=== PATIENT | female | born 1945 | race Caucasian/White ===

== ENCOUNTER 2021-03-17 15:44 | Inpatient (IN) ==
[2021-03-17] MEDS ORDERED: Naloxone 0.4 MG/ML INJ IVP PRN (16:57)
[2021-03-17] MEDS ORDERED: Ondansetron 4 MG/2 ML VIAL IVP PRN (16:57)
[2021-03-17] MEDS ORDERED: Isovue-370 500 ML BOTTLE IVP ONE (17:03)
[2021-03-17] MEDS ORDERED: Dextrose Gel 15 GM/37.5 ML TUBE PO PRN ×2 (17:04)
[2021-03-17] MEDS ORDERED: *HR* Dextrose 50 % in Water (Vial) 50 ML VIAL IVP PRN (17:04)
[2021-03-17] MEDS ORDERED: D5% in Water 1,000 ML IVC PRN (17:04)
[2021-03-18 03:14] LABS: Prothrombin Time 11.8 Seconds (9.4-12.1)
[2021-03-18 03:17] LABS: Activated Partial Thrombo Time 28.3 Seconds (26.0-36.0)
[2021-03-18 03:22] LABS: BUN/Creatinine Ratio 15 (6-26); Blood Urea Nitrogen 13 mg/dL (8-23); Calcium 9.2 mg/dL (8.6-10.3); Carbon Dioxide 24 mEq/L (23-29); Chloride 102 mEq/L (98-107); Glucose 134 mg/dL (70-105); Magnesium 1.8 mg/dL (1.6-2.6); Osmolality,Calculated 286 (280-300); Potassium 3.3 mEq/L (3.5-5.1); Sodium 137 mEq/L (136-145); eGFR For African Americans > 60 (> 60); eGFR For Non-African Americans > 60 (> 60)
[2021-03-18] MEDS: Aspirin Enteric Coated 81 MG Tablet PO SCH (08:46)
[2021-03-18] MEDS: Insulin LISPRO 300 UNITS/3 ML VIAL SUBQ SCH ×3 (08:46→17:05)
[2021-03-18] MEDS: Nystatin Cream 15 GM TUBE TP SCH (22:12)
[2021-03-18] MEDS: Ammonium Lactate 30 APPL/225 GM BOTTLE TP SCH (22:13)
[2021-03-19] MEDS: Insulin LISPRO 300 UNITS/3 ML VIAL SUBQ SCH ×3 (09:00→16:45)
[2021-03-19] MEDS: Aspirin Enteric Coated 81 MG Tablet PO SCH (09:02)
[2021-03-19] MEDS: Ammonium Lactate 30 APPL/225 GM BOTTLE TP SCH ×2 (09:02→23:19)
[2021-03-19] MEDS: Nystatin Cream 15 GM TUBE TP SCH ×2 (09:02→23:19)
[2021-03-19] MEDS ORDERED: Perflutren Lipid Microsphere 1.3 ML in 0.9 % Sodium Chloride 8.7 ML IVP PRN (09:34)
[2021-03-19] MEDS: atenoloL 50 MG TABLET PO SCH (10:03)
[2021-03-19] MEDS: Gabapentin 400 MG CAPSULE PO SCH ×2 (14:31→19:46)
[2021-03-19] MEDS: Furosemide 40 MG TABLET PO SCH (19:46)
[2021-03-20 01:44] LABS: Hematocrit 35.9 % (35.3-44.9); Mean Corpuscular HGB Conc 33.4 g/dL (31.6-35.5); Mean Corpuscular Volume 92.8 fL (83.0-100.0); Platelet Count 267 K/mcL (140-400); Red Blood Count 3.87 M/mcL (3.82-4.97); Red Cell Distribution Width 13.7 % (11.5-14.5); White Blood Count 6.4 K/mcL (4.3-11.1)
[2021-03-20 01:54] LABS: Estimated Average Glucose 160 mg/dl; Hemoglobin A1C 7.2 %
[2021-03-20 02:03] LABS: BUN/Creatinine Ratio 16 (6-26); Blood Urea Nitrogen 14 mg/dL (8-23); Calcium 9.1 mg/dL (8.6-10.3); Carbon Dioxide 24 mEq/L (23-29); Chloride 104 mEq/L (98-107); Glucose 152 mg/dL (70-105); Osmolality,Calculated 287 (280-300); Potassium 3.4 mEq/L (3.5-5.1); Sodium 137 mEq/L (136-145); eGFR For African Americans > 60 (> 60); eGFR For Non-African Americans > 60 (> 60)
[2021-03-20] MEDS: Insulin LISPRO 300 UNITS/3 ML VIAL SUBQ SCH ×4 (08:16→20:12)
[2021-03-20] MEDS: Gabapentin 400 MG CAPSULE PO SCH ×3 (09:11→20:12)
[2021-03-20] MEDS: Aspirin Enteric Coated 81 MG Tablet PO SCH (09:11)
[2021-03-20] MEDS: Furosemide 40 MG TABLET PO SCH ×2 (09:11→20:12)
[2021-03-20] MEDS: Ammonium Lactate 30 APPL/225 GM BOTTLE TP SCH (09:12)
[2021-03-20] MEDS: atenoloL 50 MG TABLET PO SCH (09:12)
[2021-03-20] MEDS: Nystatin Cream 15 GM TUBE TP SCH (09:12)
[2021-03-20] MEDS: *HR* Heparin 5,000 UNIT/ML VIAL SQ SCH (16:57)
[2021-03-21] MEDS: Nystatin Cream 15 GM TUBE TP SCH ×2 (00:01→08:34)
[2021-03-21] MEDS: Ammonium Lactate 30 APPL/225 GM BOTTLE TP SCH ×3 (00:01→20:10)
[2021-03-21] MEDS: *HR* HYDROcodone/Acet 5/325 mg TABLET PO PRN ×2 (02:05→23:25)
[2021-03-21] MEDS: *HR* Heparin 5,000 UNIT/ML VIAL SQ SCH ×2 (05:25→17:43)
[2021-03-21 05:33] LABS: BUN/Creatinine Ratio 16 (6-26); Blood Urea Nitrogen 17 mg/dL (8-23); Calcium 8.9 mg/dL (8.6-10.3); Carbon Dioxide 28 mEq/L (23-29); Chloride 103 mEq/L (98-107); Glucose 161 mg/dL (70-105); Osmolality,Calculated 293 (280-300); Potassium 3.3 mEq/L (3.5-5.1); Sodium 139 mEq/L (136-145); eGFR For African Americans > 60 (> 60); eGFR For Non-African Americans 52 (> 60)
[2021-03-21] MEDS: Aspirin Enteric Coated 81 MG Tablet PO SCH (08:27)
[2021-03-21] MEDS: atenoloL 50 MG TABLET PO SCH (08:27)
[2021-03-21] MEDS: Gabapentin 400 MG CAPSULE PO SCH ×3 (08:27→20:10)
[2021-03-21] MEDS: Insulin LISPRO 300 UNITS/3 ML VIAL SUBQ SCH ×2 (11:20→17:30)
[2021-03-21] MEDS ORDERED: Methyl Salicylate/Menthol 57 APPL/57 GM TUBE TP PRN (11:37)
[2021-03-21] MEDS ORDERED: Trolamine Salicylate/Aloe Vera 85 APPL/85 GM TUBE TP PRN (12:47)
[2021-03-21] MEDS ORDERED: Methyl Salicylate/Menthol 85 APPL/85 GM TUBE TP PRN (13:04)
[2021-03-21] MEDS ORDERED: 0.9 % Sodium Chloride 250 ML IVC SCH (18:00)
[2021-03-22] MEDS: Nystatin Cream 15 GM TUBE TP SCH ×3 (00:23→20:09)
[2021-03-22 02:20] LABS: Calcium 8.9 mg/dL (8.6-10.3); Potassium 3.6 mEq/L (3.5-5.1)
[2021-03-22] MEDS: *HR* Heparin 5,000 UNIT/ML VIAL SQ SCH ×2 (05:40→17:17)
[2021-03-22] MEDS: Aspirin Enteric Coated 81 MG Tablet PO SCH (09:07)
[2021-03-22] MEDS: atenoloL 50 MG TABLET PO SCH (09:07)
[2021-03-22] MEDS: Gabapentin 400 MG CAPSULE PO SCH ×3 (09:07→20:07)
[2021-03-22] MEDS: Insulin LISPRO 300 UNITS/3 ML VIAL SUBQ SCH ×3 (09:10→17:18)
[2021-03-22] MEDS: Ammonium Lactate 30 APPL/225 GM BOTTLE TP SCH ×2 (09:58→20:09)
[2021-03-22] MEDS ORDERED: 0.9 % Sodium Chloride 500 ML IVC SCH (11:45)
[2021-03-22] MEDS: *HR* HYDROcodone/Acet 5/325 mg TABLET PO PRN (14:42)
[2021-03-23] MEDS: *HR* HYDROcodone/Acet 5/325 mg TABLET PO PRN (00:24)
[2021-03-23] MEDS: *HR* Heparin 5,000 UNIT/ML VIAL SQ SCH (05:32)
[2021-03-23] MEDS: Insulin LISPRO 300 UNITS/3 ML VIAL SUBQ SCH ×2 (08:50→12:59)
[2021-03-23] MEDS: atenoloL 50 MG TABLET PO SCH (08:51)
[2021-03-23] MEDS: Aspirin Enteric Coated 81 MG Tablet PO SCH (08:51)
[2021-03-23] MEDS: Gabapentin 400 MG CAPSULE PO SCH (08:51)
[2021-03-23] MEDS: Nystatin Cream 15 GM TUBE TP SCH (08:56)
[2021-03-23] MEDS: Ammonium Lactate 30 APPL/225 GM BOTTLE TP SCH (08:56)
[2021-03-23 09:06] LABS: BUN/Creatinine Ratio 21 (6-26); Blood Urea Nitrogen 20 mg/dL (8-23); Calcium 9.2 mg/dL (8.6-10.3); Carbon Dioxide 25 mEq/L (23-29); Chloride 103 mEq/L (98-107); Glucose 172 mg/dL (70-105); Osmolality,Calculated 291 (280-300); Potassium 3.7 mEq/L (3.5-5.1); Sodium 137 mEq/L (136-145); eGFR For African Americans > 60 (> 60); eGFR For Non-African Americans 56 (> 60)
[2021-03-23 11:23] VITALS: BP 157/73; PULSE 60; TEMP 97.4; O2SAT 95
== END 2021-03-23 14:20 | DRG 74 ==
LOC: 3BNU → SUATTDRO 03-18 14:35
PROVIDERS: ADMIT Internal Medicine; ATTEND Nurse Practitioner

== ENCOUNTER 2021-11-08 08:38 | Inpatient (IN) ==
[2021-11-08] MEDS ORDERED: 0.9 % Sodium Chloride 1,000 ML IV ONE ×2 (09:39→12:21)
[2021-11-08 09:49] LABS: Basophils % 0.2 %; Eosinophils % 0.2 %; Hematocrit 31.9 % (35.3-44.9); Hemoglobin 10.2 g/dL (11.5-15.4); Mean Corpuscular Hemoglobin 30.5 pg (28.0-33.3); Mean Corpuscular Volume 95.5 fL (83.0-100.0); Red Blood Count 3.34 M/mcL (3.82-4.97)
[2021-11-08 09:51] LABS: Immature Granulocytes % 0.8 % (0-4); Immature Platelets 1.5 % (1.1-6.1); Lymphocytes # 0.8 K/mcL (0.6-4.6); Lymphocytes % 4.4 %; Mean Platelet Volume 9.1 fL (9.4-12.4); Monocytes # 0.6 K/mcL (0.0-1.3); Monocytes % 3.5 %; Neutrophils # 16.5 K/mcL (1.6-8.9); Platelet Count 362 K/mcL (140-400); Red Cell Distribution Width 14.1 % (11.5-14.5); Segmented Neutrophils % 90.9 %; White Blood Count 18.1 K/mcL (4.3-11.1)
[2021-11-08 09:58] LABS: Alanine Aminotransferase 9 Units/L (7-52); Albumin 3.6 g/dL (3.5-5.7); Albumin/Globulin Ratio 1.1 (1.1-2.2); Alkaline Phosphatase 61 Units/L (34-104); Aspartate Amino Transferase 20 Units/L (13-39); BUN/Creatinine Ratio 17 (6-26); Bilirubin,Direct 0.2 mg/dL (0.0-0.2); Bilirubin,Indirect 0.4 mg/dL (0.0-1.0); Bilirubin,Total 0.6 mg/dL (0.3-1.0); Blood Urea Nitrogen 30 mg/dL (8-23); Carbon Dioxide 28 mEq/L (23-29); Chloride 94 mEq/L (98-107); Globulin 3.2 g/dL (2.4-3.5); Glucose 199 mg/dL (70-105); Lipase 8 Units/L (11-82); Osmolality,Calculated 288 (280-300); Sodium 133 mEq/L (136-145); Total Protein 6.8 g/dL (6.4-8.9); eGFR For African Americans 34 (> 60); eGFR For Non-African Americans 28 (> 60)
[2021-11-08 10:05] LABS: Troponin I < 0.03 ng/mL (< 0.04)
[2021-11-08 10:25] LABS: Influenza A PCR Negative (Negative); Influenza B PCR Negative (Negative); Resp. Syncytial Virus PCR Negative (Negative); SARS-CoV-2 by PCR (In House) Negative (Negative)
[2021-11-08] MEDS ORDERED: Piperacillin/Tazobactam 3.375 GM in 0.9 % Sodium Chloride Mini Bag 100 ML IVPB ONE (11:02)
[2021-11-08 11:07] LABS: Bilirubin,Urine Negative (Negative); Blood,Urine Negative (Negative); Clarity,Urine Clear (Clear); Color,Urine Light-Yellow (Yellow); Glucose,Urine (UA) 30 mg/dL (Normal); Ketones,Urine Negative (Negative); Leukocyte Esterase,Urine Negative (Negative); Mucus,Urine Few per lpf (None-Few); Nitrite,Urine Negative (Negative); PH,Urine 6.5 pH Units (5.0-8.0); Protein,Urine Trace mg/dL (Neg-Trace); RBC,Urine 0-3 per hpf (0-3); Specific Gravity,Urine 1.011 (1.010-1.025); Squamous Epithelial Cell,Urine Few per hpf (None-Few); Urobilinogen,Urine Normal (Normal); WBC,Urine 0-3 per hpf (0-3)
[2021-11-08] MEDS ORDERED: Vancomycin 1,500 MG/265 ML IV.SOLN IVPB ONE (12:00)
[2021-11-08] MEDS ORDERED: Dextrose 4 GM Chewable Tablets PO PRN ×2 (12:45)
[2021-11-08] MEDS ORDERED: *HR* Dextrose 50 % in Water (Syg) 50 ML SYRINGE IVP PRN (12:45)
[2021-11-08] MEDS ORDERED: Naloxone 0.4 MG/ML INJ IVP PRN (12:45)
[2021-11-08] MEDS ORDERED: D5% in Water 1,000 ML IVC PRN (12:45)
[2021-11-08] MEDS ORDERED: Acetaminophen 325 MG TABLET PO PRN (12:45)
[2021-11-08] MEDS ORDERED: cefTRIAXone 1,000 MG in 0.9 % Sodium Chloride 10 ML IVP SCH (13:00)
[2021-11-08] MEDS: 0.9 % Sodium Chloride 1,000 ML IVC SCH (16:46)
[2021-11-08] MEDS: Insulin LISPRO 300 UNITS/3 ML VIAL SUBQ SCH (16:55)
[2021-11-08] MEDS: *HR* Heparin 5,000 UNIT/ML VIAL SQ SCH (16:55)
[2021-11-08] MEDS: Nystatin POWDER 30 GM BOTTLE TP SCH ×2 (19:07→20:44)
[2021-11-08] MEDS: cefTRIAXone 1,000 MG in 0.9 % Sodium Chloride 10 ML IVP SCH (20:41)
[2021-11-08] MEDS: Miconazole 2% ointment 141 APPL/141 GM TUBE TP SCH (20:44)
[2021-11-09] MEDS: *HR* Heparin 5,000 UNIT/ML VIAL SQ SCH ×2 (05:18→16:31)
[2021-11-09 06:56] LABS: Basophils # 0.1 K/mcL (0.0-0.2); Basophils % 0.5 %; Eosinophils # 0.1 K/mcL (0.0-0.6); Eosinophils % 0.6 %; Hematocrit 27.4 % (35.3-44.9); Hemoglobin 8.7 g/dL (11.5-15.4); Immature Granulocytes % 0.4 % (0-4); Lymphocytes # 1.2 K/mcL (0.6-4.6); Lymphocytes % 11.2 %; Mean Corpuscular HGB Conc 31.8 g/dL (31.6-35.5); Mean Corpuscular Hemoglobin 29.9 pg (28.0-33.3); Mean Corpuscular Volume 94.2 fL (83.0-100.0); Mean Platelet Volume 8.7 fL (9.4-12.4); Monocytes # 0.4 K/mcL (0.0-1.3); Monocytes % 3.5 %; Neutrophils # 9.3 K/mcL (1.6-8.9); Platelet Count 283 K/mcL (140-400); Red Blood Count 2.91 M/mcL (3.82-4.97); Red Cell Distribution Width 14.3 % (11.5-14.5); Segmented Neutrophils % 83.8 %; White Blood Count 11.1 K/mcL (4.3-11.1)
[2021-11-09] MEDS: 0.9 % Sodium Chloride 1,000 ML IVC SCH (07:12)
[2021-11-09 07:15] LABS: Calcium 8.2 mg/dL (8.6-10.3); Magnesium 1.7 mg/dL (1.6-2.6); Phosphorous 4.2 mg/dL (2.7-4.5); Potassium 3.9 mEq/L (3.5-5.1)
[2021-11-09 07:20] LABS: % Iron Saturation 5 % (15-50); Iron 12 mcg/dL (50-170); Transferrin 184 mg/dL (203-362)
[2021-11-09 07:33] LABS: Ferritin 173 ng/mL (10-120)
[2021-11-09 07:39] LABS: Folate 13.2 ng/mL (3.0-16.0)
[2021-11-09] MEDS: Insulin LISPRO 300 UNITS/3 ML VIAL SUBQ SCH ×3 (08:25→16:28)
[2021-11-09] MEDS: Aspirin 81 MG TAB.CHEW PO SCH (09:00)
[2021-11-09] MEDS: atenoloL 50 MG TABLET PO SCH (09:00)
[2021-11-09] MEDS: Nystatin POWDER 30 GM BOTTLE TP SCH ×3 (09:00→19:42)
[2021-11-09] MEDS: Miconazole 2% ointment 141 APPL/141 GM TUBE TP SCH ×2 (09:01→19:43)
[2021-11-09] MEDS ORDERED: Vancomycin 1,500 MG/265 ML IV.SOLN IVPB SCH (12:00)
[2021-11-09] MEDS: cefTRIAXone 1,000 MG in 0.9 % Sodium Chloride 10 ML IVP SCH (19:41)
[2021-11-10] MEDS: Ondansetron 4 MG/2 ML VIAL IVP PRN (00:41)
[2021-11-10 03:03] LABS: Basophils % 0.2 %; Eosinophils % 0.3 %; Hematocrit 27.9 % (35.3-44.9); Immature Granulocytes % 0.3 % (0-4); Lymphocytes # 1.1 K/mcL (0.6-4.6); Lymphocytes % 9.5 %; Mean Corpuscular HGB Conc 32.3 g/dL (31.6-35.5); Mean Corpuscular Hemoglobin 30.7 pg (28.0-33.3); Mean Corpuscular Volume 95.2 fL (83.0-100.0); Mean Platelet Volume 8.8 fL (9.4-12.4); Monocytes # 0.5 K/mcL (0.0-1.3); Monocytes % 4.7 %; Neutrophils # 9.7 K/mcL (1.6-8.9); Platelet Count 296 K/mcL (140-400); Red Blood Count 2.93 M/mcL (3.82-4.97); Red Cell Distribution Width 14.4 % (11.5-14.5); White Blood Count 11.4 K/mcL (4.3-11.1)
[2021-11-10 03:15] LABS: Calcium 8.4 mg/dL (8.6-10.3); Magnesium 1.7 mg/dL (1.6-2.6); Phosphorous 3.9 mg/dL (2.7-4.5); Potassium 3.8 mEq/L (3.5-5.1)
[2021-11-10] MEDS: *HR* Heparin 5,000 UNIT/ML VIAL SQ SCH ×2 (05:44→18:09)
[2021-11-10] MEDS: Cyanocobalamin (B-12) 1,000 MCG TABLET PO SCH (09:04)
[2021-11-10] MEDS: Nystatin POWDER 30 GM BOTTLE TP SCH ×3 (09:05→21:38)
[2021-11-10] MEDS: Aspirin 81 MG TAB.CHEW PO SCH (09:05)
[2021-11-10] MEDS: atenoloL 50 MG TABLET PO SCH (09:05)
[2021-11-10] MEDS: Miconazole 2% ointment 141 APPL/141 GM TUBE TP SCH ×2 (09:06→21:38)
[2021-11-10] MEDS: Insulin LISPRO 300 UNITS/3 ML VIAL SUBQ SCH ×3 (09:06→16:08)
[2021-11-10] MEDS: Gabapentin 400 MG CAPSULE PO SCH ×2 (16:08→21:37)
[2021-11-10] MEDS: cefTRIAXone 1,000 MG in 0.9 % Sodium Chloride 10 ML IVP SCH (21:36)
[2021-11-11] MEDS: *HR* Heparin 5,000 UNIT/ML VIAL SQ SCH ×2 (05:00→18:16)
[2021-11-11] MEDS: Insulin LISPRO 300 UNITS/3 ML VIAL SUBQ SCH ×3 (07:36→17:07)
[2021-11-11] MEDS: atenoloL 50 MG TABLET PO SCH (07:52)
[2021-11-11] MEDS: Cholecalciferol (D-3) 1,000 UNIT (25MCG) TABLET PO SCH (07:53)
[2021-11-11] MEDS: Cyanocobalamin (B-12) 1,000 MCG TABLET PO SCH (07:53)
[2021-11-11] MEDS: Gabapentin 400 MG CAPSULE PO SCH ×2 (07:53→22:01)
[2021-11-11] MEDS: Aspirin 81 MG TAB.CHEW PO SCH (07:53)
[2021-11-11] MEDS: amLODIPine 5 MG TABLET PO SCH (07:53)
[2021-11-11] MEDS: Miconazole 2% ointment 141 APPL/141 GM TUBE TP SCH ×2 (07:54→22:09)
[2021-11-11] MEDS: Nystatin POWDER 30 GM BOTTLE TP SCH ×3 (07:54→22:09)
[2021-11-11 08:46] LABS: Calcium 8.9 mg/dL (8.6-10.3); Magnesium 1.8 mg/dL (1.6-2.6); Phosphorous 3.7 mg/dL (2.7-4.5); Potassium 3.8 mEq/L (3.5-5.1)
[2021-11-11] MEDS: Furosemide 40 MG TABLET PO SCH ×2 (11:39→22:01)
[2021-11-11] MEDS: Ondansetron 4 MG/2 ML VIAL IVP PRN (19:35)
[2021-11-11] MEDS: cefTRIAXone 1,000 MG in 0.9 % Sodium Chloride 10 ML IVP SCH (22:03)
[2021-11-12] MEDS: *HR* Heparin 5,000 UNIT/ML VIAL SQ SCH (05:12)
[2021-11-12 05:49] LABS: Basophils # 0.1 K/mcL (0.0-0.2); Basophils % 0.9 %; Eosinophils # 0.2 K/mcL (0.0-0.6); Eosinophils % 2.4 %; Hematocrit 29.4 % (35.3-44.9); Immature Granulocytes % 0.9 % (0-4); Lymphocytes # 1.4 K/mcL (0.6-4.6); Lymphocytes % 19.7 %; Mean Corpuscular HGB Conc 30.6 g/dL (31.6-35.5); Mean Corpuscular Hemoglobin 29.3 pg (28.0-33.3); Mean Corpuscular Volume 95.8 fL (83.0-100.0); Mean Platelet Volume 8.8 fL (9.4-12.4); Monocytes # 0.6 K/mcL (0.0-1.3); Neutrophils # 4.8 K/mcL (1.6-8.9); Platelet Count 353 K/mcL (140-400); Red Blood Count 3.07 M/mcL (3.82-4.97); Red Cell Distribution Width 14.1 % (11.5-14.5); Segmented Neutrophils % 68.1 %
[2021-11-12 06:07] LABS: Calcium 8.9 mg/dL (8.6-10.3); Magnesium 1.9 mg/dL (1.6-2.6); Potassium 3.8 mEq/L (3.5-5.1)
[2021-11-12 07:41] VITALS: BP 147/76; TEMP 98.2
[2021-11-12] MEDS: Furosemide 40 MG TABLET PO SCH (08:36)
[2021-11-12] MEDS: atenoloL 50 MG TABLET PO SCH (08:36)
[2021-11-12] MEDS: Cholecalciferol (D-3) 1,000 UNIT (25MCG) TABLET PO SCH (08:36)
[2021-11-12] MEDS: Gabapentin 400 MG CAPSULE PO SCH (08:37)
[2021-11-12] MEDS: Aspirin 81 MG TAB.CHEW PO SCH (08:37)
[2021-11-12] MEDS: amLODIPine 5 MG TABLET PO SCH (08:37)
[2021-11-12] MEDS: Cyanocobalamin (B-12) 1,000 MCG TABLET PO SCH (08:37)
[2021-11-12] MEDS: Nystatin POWDER 30 GM BOTTLE TP SCH ×2 (08:38→16:59)
[2021-11-12] MEDS: Miconazole 2% ointment 141 APPL/141 GM TUBE TP SCH (08:38)
[2021-11-12] MEDS: Insulin LISPRO 300 UNITS/3 ML VIAL SUBQ SCH ×3 (08:40→16:59)
[2021-11-12] MEDS ORDERED: Doxycycline 100 MG CAPSULE PO SCH (09:00)
[2021-11-12 09:31] VITALS: O2SAT 100
[2021-11-12 10:01] VITALS: PULSE 66
[2021-11-12 15:42] LABS: Adenovirus Not Detected (Not Detect); Bordetella Pertussis Not Detected (Not Detect); Chlamydophila pneumoniae Not Detected (Not Detect); Coronavirus 229E Not Detected (Not Detect); Coronavirus HKU1 Not Detected (Not Detect); Coronavirus NL63 Not Detected (Not Detect); Coronavirus OC43 Not Detected (Not Detect); Human Metapneumovirus Not Detected (Not Detect); Human Rhinovirus/Enterovirus Not Detected (Not Detect); Influenza A Subtype 2009 H1 Not Detected (Not Detect); Influenza B Not Detected (Not Detect); Parainfluenza Virus 1 Not Detected (Not Detect); Parainfluenza Virus 2 Not Detected (Not Detect); Parainfluenza Virus 3 Not Detected (Not Detect); Parainfluenza Virus 4 Not Detected (Not Detect); Respiratory Syncytial Virus Not Detected (Not Detect); SARS-CoV-2 Not Detected (Not Detect)
[2021-11-12 15:43] LABS: Mycoplasma pneumoniae Not Detected (Not Detect)
== END 2021-11-12 18:01 | DRG 602 ==
LOC: EMEROOARM 08:38 → 3ANU 08:38 → SUATTDRO 12:45 → 3ANU 13:41 → OBSVTOIN 11-09 10:00
PROVIDERS: ADMIT Internal Medicine; ATTEND Internal Medicine